=== PATIENT | female | born 2000 | race Caucasian/White ===

== ENCOUNTER 2025-02-17 10:05 | Outpatient (CLI) | payer OTHER, SELFPAY ==
--- NOTE | ~2025-02-17 | US_ITS ---
EXAMINATION: US OB /maternal detail DATE: 02/17/2025 16:36 CDT INDICATION: Anatomy scan TECHNIQUE: Real-time transabdominal obstetric ultrasound. FINDINGS: 4 para 0. Last menstrual period is given as 09/12/2024. There is a single intrauterine gestation in variable presentation. The placenta is posterior. The tip of the placenta measures approximately 5 cm from the cervix. The cervix measures 3.5 cm in length. cardiac activity and movement is noted with a heart rate of 143 beats per minute. Anatomic parameters are as follows The bladder is visualized and is unremarkable. A three-vessel cord is present. Cord insertion is on the midline on the submitted images. Bilateral kidneys are present and symmetric without hydronephrosis. The margins of the diaphragm is poorly visualized for which follow-up examination is needed. The cervical, thoracic and lumbar spines are covered in their entirety. choroid plexi are poorly visualized, for which follow-up examination is needed. Lateral ventricles are poorly visualized for which follow-up examination is needed. The falx is visualized. The cerebellum is visualized measuring 18.9 mm, and is sonographically unremarkable. The cisterna magna measures 2.8 mm in anterior to posterior dimension (normal measurement is 2 to 10 mm). The nuchal fold measures 4.9 mm (greater than 6 mm is considered abnormal). Cine of the four-chamber heart is visualized and is unremarkable. Both the right and left ventricular outflow tracts are identified and are unremarkable. Limited views of the arms, hands, legs and feet were performed and appear grossly unremarkable. The evaluation of the upper lip and nose confirms their continuity. The following biometric data were obtained: Biparietal diameter (BPD): 4.4 cm; head circumference (HC): 16.1 cm; abdominal circumference (AC): 13.5 cm; femur length (FL): 3 cm. These measurements are concordant. Estimated weight is 272.9 g +/- 40.9 g, which correlates with the third percentile when 07/13/20 25 is used as estimated date of delivery. As single measurements, these parameters are each equal to the following estimated gestational ages: BPD: 19 weeks 2 days. HC: 19 weeks 0 days. AC: 18 weeks 6 days. FL: 19 weeks 2 days. estimated gestational age based solely on measurements from this exam is 19 weeks 1 day +/- 1 w [place] 2 days. IMPRESSION: Single intrauterine gestation with an approximate gestational age of 19 weeks and 1 day. Estimated due date by ultrasound is 07/13/2025. Estimated weight is only within the 3rd percentile, as detailed above. choroid plexi are poorly visualized, for which follow-up examination is needed. Lateral ventricles are poorly visualized for which follow-up examination is needed. Reviewed, dictated and finalized at location A. IMPRESSION: Single intrauterine gestation with an approximate gestational age of 19 weeks a nd 1 day. Estimated due date by ultrasound is 07/13/2025. Estimated weight is only within the 3rd percentile, as detailed above. choroid plexi are poorly visualized, for which follow-up examination is n eeded. Lateral ventricles are poorly visualized for which follow-up examination is nee ded.
--- OUTSIDE RECORDS SUMMARY | 2025-02-17 10:26 | XMS_ITS | Clinical Summary ---
Author Organization [facility] Address [address] [place] [address] Care Team Providers Care Chief Load Dispatcher Name Role Phone No, Physician Primary Care Provider [phone] Allergies No known active allergies Medications ondansetron ODT (ZOFRAN-ODT) 4 mg disintegrating tablet Take 1 tablet (4 mg total) by mouth every 8 (eight) hours as needed for nausea or vomiting 20 tablet 5 Active prochlorperazine (COMPAZINE) 10 mg tablet Take 1 tablet (10 mg total) by mouth 2 (two) times a day as needed for nausea or vomiting 10 tablet 5 Active doxylamine-pyridoxi ne, vit B6, (DICLEGIS) 10-10 mg tablet Take 1 tablet by mouth nightly as needed for nausea 30 tablet 5 Active Active Problems Problem Noted Date Diagnosed Date Strep pharyngitis 11/30/2022 Comments Yes Encounters Date Type Department Care Team Description 12/04/2024 3:44 PM CLERICAL SPECIALIST - 12/04/2024 6:44 PM [facility] Emergency [facility] Emergency Department [address] [place] [address] Renny Tejeda MD Hyperemesis gravidarum (Primary Dx); Hypokalemia Discharge Disposition: Discharge to home or self care 11/27/2024 1:44 AM CLERICAL SPECIALIST - 11/27/2024 6:35 AM CLERICAL SPECIALIST Emergency [facility] Emergency Department [address] [place] [address] Bahman Kimbrough MD Nausea and vomiting, unspecified vomiting type (Primary Dx); UTI (urinary tract infection), bacterial Discharge Disposition: Discharge to home or self care 11/25/2024 10:57 PM CLERICAL SPECIALIST - 11/26/2024 1:34 AM CLERICAL SPECIALIST Emergency [facility] Emergency Department [address] [place] [address] Bahman Kimbrough MD UTI (urinary tract infection), bacterial (Primary Dx); Less than 8 weeks gestation of ; Asymptomatic bacteriuria during Discharge Disposition: Discharge to home or self care from Last 3 Months Social History Tobacco Use Types Packs/Day Years Used Date Smoking Tobacco: Never Smokeless Tobacco: Never Tobacco Cessation:Counseling Given: Not Answered Personal Safety Answer Date Recorded Have you ever been in or are you currently in a harmful physical or emotional relationship or is someone making you feel afraid or unsafe? Denies 12/04/2024 Comments Yes Sex and Gender Information Value Date Recorded Sex Assigned at Not on file Legal Sex Female 1:03 PM CLERICAL SPECIALIST Gender Identity Not on file Sexual Orientation Not on file Obstetrics History Para Term AB IAB SAB Ectopic Multiple Livin g Live Births 1 Date Outcome GA Total Labor Labor/2nd/3rd Weight Sex Type Anes PTL Dagmar A1 A5 Name Clin Current Last Filed Vital Signs Vital Sign Reading Time Taken Comments Blood Pressure 114/65 12/04/2024 6:44 PM CLERICAL SPECIALIST Pulse 70 12/04/2024 6:44 PM CLERICAL SPECIALIST Temperature 36.8 C (98.3 F) 12/04/2024 12:16 PM CLERICAL SPECIALIST Respiratory Rate 17 12/04/2024 6:44 PM CLERICAL SPECIALIST Oxygen Saturation 98% 12/04/2024 6:44 PM CLERICAL SPECIALIST Inhaled Oxygen Concentration - - Weight 86.2 kg (190 lb) 12/04/2024 12:16 PM CLERICAL SPECIALIST Height 157.5 cm (5' 2 ) 12/04/2024 12:16 PM CLERICAL SPECIALIST Body Mass Index 34.75 12/04/2024 12:16 PM CLERICAL SPECIALIST Plan of Treatment Health Maintenance Due Date Last Done Comments Cervical Cancer Screening 2002 Depression Screening 2002 Hepatitis C Screening 2002 Meningococcal B Vaccine (2 of 2 - Bexsero SCDM 2-dose series) 02/16/2019 08/18/2018 Regular Well Visit/Exam 18-64 2020 Covid-19 Vaccine ( season) 2024 11/05/2021, 12/14/2020, 11/15/2020 DTaP/Tdap/Td Vaccine (7 - Td or Tdap) 06/04/2025 06/04/2015, 07/21/2006, 09/13/2003, Additional history exists Influenza Vaccine (Season Ended) 2025 08/08/2023, 11/01/2020, 07/30/2019, Additional history exists Pneumococcal vaccine <65 Aged Out 2002 No longer eligible based on patient's age to complete this topic Hepatitis B Screening Completed 06/26/2003 , 04/25/2003, 01/27/2003, Additional history exists Varicella Vaccines Completed 06/04/2015, 0 04/06/2007, 11/23/2003 HPV Vaccines Completed 03/07/2016, 07/27, 06/04/2015, Additional history exists Procedures Procedure Name Priority Date/Time Associated Diagnosis Comments EGFR STAT 12/04/2024 4:41 PM CLERICAL SPECIALIST DIFFERENTIAL AUTO STAT 12/04/2024 4:4 1 PM CLERICAL SPECIALIST CBC WITH AUTO DIFFERENTIAL STAT 12/04/2024 4:41 PM CLERICAL SPECIALIST COMPREHENSIVE METABOLIC PANEL STAT 12/04/2024 4:41 PM CLERICAL SPECIALIST URINE CULTURE STAT 12/04/2024 4:41 PM CLERICAL SPECIALIST URINALYSIS, MICROSCOPIC ONLY STAT 12/04/2024 12:16 PM CLERICAL SPECIALIST URINALYSIS AND REFLEX TO MICROSCOPIC AND CULTURE STAT 12/04/2024 12:16 PM CLERICAL SPECIALIST POCT HCG, URINE Routine 12/04/2024 12:15 PM CLERICAL SPECIALIST XR CHEST 1 VIEW ED 11/27/2024 5:29 AM CLERICAL SPECIALIST HCG, BLOOD, QUANTITATIVE STAT 11/26/2024 11:29 PM CLERICAL SPECIALIST EGFR STAT 11/26/2024 11:29 PM CLERICAL SPECIALIST DIFFERENTIAL AUTO STAT 11/26/2024 11: 29 PM CLERICAL SPECIALIST COMPREHENSIVE METABOLIC PANEL STAT 11/26/2024 11:29 PM CLERICAL SPECIALIST CBC WITH AUTO DIFFERENTIAL STAT 11/26/2024 11:29 PM CLERICAL SPECIALIST URINALYSIS, MICROSCOPIC ONLY STAT 11/26/2024 12:27 AM CLERICAL SPECIALIST URINALYSIS AND REFLEX TO MICROSCOPIC AND CULTURE STAT 11/26/2024 12:27 AM CLERICAL SPECIALIST EGFR STAT 11/25/2024 9:31 PM CLERICAL SPECIALIST DIFFERENTIAL AUTO STAT 11/25/2024 9:3 1 PM CLERICAL SPECIALIST HCG, BLOOD, QUANTITATIVE STAT 11/25/2024 9:31 PM CLERICAL SPECIALIST COMPREHENSIVE METABOLIC PANEL STAT 11/25/2024 9:31 PM CLERICAL SPECIALIST CBC WITH AUTO DIFFERENTIAL STAT 11/25/2024 9:31 PM CLERICAL SPECIALIST INFLUENZA A/B, RSV, AND COVID-19 PCR Routine 11/25/2024 9:31 PM CLERICAL SPECIALIST from Last 3 Months Results * eGFR (12/04/2024 4:41 PM CLERICAL SPECIALIST) eGFR >90 >=60 mL/min/1. 73 m2 Comment: Interpretive Data Reference Interval Normal >/= 90 mL/min/1.73m2 Mildly decreased* 60 - 89 mL/min/1.73m2 Mildly to moderately decreased 45 - 59 mL/min/1.73m2 Moderately to severely decreased 30 - 44 mL/min/1.73m2 Severely decreased 15 - 29 mL/min/1.73m2 Kidney Failure < 15 mL/min/1.73m2 *Relative to young adult level Estimated glomerular filtration rate is determined by the 2020 CKD-EPI equation recommended by the National Kidney Foundation (A Unifying Approach to GFR Estimation: Recommendations of the NKF-ASK Task Force on Reassessing the Inclusion of Race in Diagnosing Kidney Disease, JASN 202). The CKD-EPI equation should not be used for patients with unstable renal function and has not been validated in children and those over 70. Current interpretive data was last reviewed 2021. Blood 12/04/2024 4:41 PM CLERICAL SPECIALIST 12/04/2024 4:49 PM CLERICAL SPECIALIST us Melquiades Coffey MD LAB BLOOD ORDERABLES Final Result [address] [place] [address] * Differential, auto (12/04/2024 4:41 PM CLERICAL SPECIALIST) Pathologist [facility] Neutrophil abs 6.5 1.5 - 6.5 K/cumm Imm gran abs 0.0 0.0 - 0.1 K/cumm [facility] Lymphocyte abs 1.3 0.8 - 3.3 K/cumm [facility] Monocyte abs 0.7 0.2 - 0.8 K/cumm [facility] Eosinophil abs 0.0 0.0 - 0.5 K/cumm [facility] Basophil abs 0.0 0.0 - 0.1 K/cumm [facility] Neutrophil pct 76.0 % [facility] Comment: Interpretive Data Percent cell count reference ranges are not reported, since discordance with absolute values may lead to misinterpretation of CBC data. Current Interpretive Data was last revised on 2018. Imm gran pct 0.4 % [facility] Comment: Interpretive Data Percent cell count reference ranges are not reported, since discordance with absolute values may lead to misinterpretation of CBC data. Current Interpretive Data was last revised on 2018. Lymphocyte pct 14.7 % [facility] Comment: Interpretive Data Percent cell count reference ranges are not reported, since discordance with absolute values may lead to misinterpretation of CBC data. Current Interpretive Data was last revised on 2018. Monocyte pct 8.6 % [facility] Comment: Interpretive Data Percent cell count reference ranges are not reported, since discordance with absolute values may lead to misinterpretation of CBC data. Current Interpretive Data was last revised on 2018. Eosinophil pct 0.1 % [facility] Comment: Interpretive Data Percent cell count reference ranges are not reported, since discordance with absolute values may lead to misinterpretation of CBC data. Current Interpretive Data was last revised on 2018. Basophil pct 0.2 % [facility] Comment: Interpretive Data Percent cell count reference ranges are not reported, since discordance with absolute values may lead to misinterpretation of CBC data. Current Interpretive Data was last revised on 2018. Blood 12/04/2024 4:41 PM CLERICAL SPECIALIST 12/04/2024 4:49 PM CLERICAL SPECIALIST us Buffy BURKETT LAB BLOOD ORDERABLES Manjula l Result [facility] [address] [facility] Department [place] [address] * CBC with auto differential (12/04/2024 4:41 PM CLERICAL SPECIALIST) WBC 8.5 3.8 - 9.9 K/cumm Hgb 12.5 11.9 - 15.5 g/dL [facility] Hct 36.3 35.6 - 45.5 % [facility] Plt 286 150 - 400 K/cumm [facility] MPV 10.5 9.1 - 12.3 fL [facility] RBC 4.23 3.90 - 5.20 M/cumm [facility] MCV 85.8 81.3 - 96.4 fL [facility] MCH 29.6 27.1 - 33.3 pg [facility] MCHC 34.4 32.3 - 35.7 g/dL [facility] RDW CV 12.2 11.1 - 14.9 % [facility] RDW SD 38.4 35.7 - 48.1 fL [facility] NRBC abs 0.00 0.00 - 0.01 K/cumm [facility] Blood 12/04/2024 4:41 PM CLERICAL SPECIALIST 12/04/2024 4:49 PM CLERICAL SPECIALIST Buffy BURKETT LAB BLOOD ORDERABLES Manjula l Result Performing Organization Address [facility] Co de Phone Number [address] [place] [address] * (ABNORMAL) Urine culture Urine, bladder (12/04/2024 4:41 PM CLERICAL SPECIALIST) Report Final Report: Growth indicates contamination with gram-positive john. (.) Comment:Testing performed by : [facility], [facility], [place]., [address] Organism GROWTH INDICATES CONTAMINATION WITH GRAM-POS JOHN [facility] Urine, bladder 12/04/2024 4: 41 PM CLERICAL SPECIALIST 12/04/2024 6:00 PM CLERICAL SPECIALIST Narrative [facility] - 12/05/2024 12:13 PM CLERICAL SPECIALIST Indications for Culture:-> patient us Buffy BURKETT LAB MICROBIOLOGY - GENERA L ORDERABLES Final Result Performing Organization Address [facility] Co de Phone Number [address] [place] [address] * (ABNORMAL) Comprehensive metabolic panel (12/04/2024 4:41 PM CLERICAL SPECIALIST) Sodium 134(L) 135 - 145 mmol/L Potassium, pl 3.2(L) 3.3 - 4.9 mmol/L [facility] Chloride 100 97 - 110 mmol/L [facility] CO2 22 22 - 32 mmol/L [facility] Anion gap 12 2 - 15 mmol/L [facility] BUN 8 6 - 25 mg/dL [facility] Creatinine 0.57(L) 0.60 - 1.10 mg/dL [facility] Glucose 95 70 - 199 mg/dL [facility] Comment: Interpretive Data Fasting glucose >/= 126 mg/dl is diagnostic for diabetes. Fasting is defined as no caloric intake for at least 8 hours. Fasting glucose between 100 mg/dl to 125 mg/dl is diagnostic of prediabetes. In a patient with classic symptoms of hyperglycemia or hyperglycemic crisis, a random glucose >/= 200 mg/dl is diagnostic for diabetes. In the absence of unequivocal hyperglycemia, results should be confirmed by repeat testing. The classification and Diagnosis of Diabetes Diabetes Care 2021; 46: S19-S40. Current interpretive data was last revised 2022. Calcium 9.2 8.5 - 10.3 mg/dL [facility] Bilirubin, total 0.4 0.1 - 1.2 mg/dL [facility] Protein, pl 6.6 6.5 - 8.5 g/dL [facility] Albumin 3.9 3.5 - 5.0 g/dL [facility] Alk phos 71 40 - 130 Units/L [facility] ALT 46(H) 7 - 45 Units/L [facility] AST 30 10 - 45 Units/L [facility] Blood 12/04/2024 4:41 PM CLERICAL SPECIALIST 12/04/2024 4:49 PM CLERICAL SPECIALIST Melquiades Coffey MD LAB BLOOD ORDERABLES Final Result [address] Department [place] [address] * (ABNORMAL) Urinalysis reflex to microscopic and culture Urine (12/04/2024 12:16 PM CLERICAL SPECIALIST) Color, ur Yellow Yellow Clarity, ur Turbid(A) Clear [facility] Specific gravity, ur >1.030(H) 1.003 - 1.030 [facility] pH, urine 6.0 [facility] Comment: Interpretive Data U rine pH is affected by diet, medications, systemic acid-base disturbances, and renal tubular function. pH may affect urinary stone formation. For example, urine pH below 6.0 may help reduce the tendency for calcium phosphate stones and pH greater than 6.0 may reduce the tendency for uric acid stone formation. Source: [facility] Current Interpretive Data was last revised on 2017 Protein, ur ql 1+(A) Negative [facility] Glucose, ur ql Negative Negative [facility] Ketones, ur 4+(A) Negative [facility] Bilirubin, ur Negative Negative [facility] Blood, ur Negative Negative [facility] Urobilinogen, ur 4.0(A) <2.0 mg/dL [facility] Nitrite, ur Negative Negative [facility] Leukocyte esterase, ur Negative Negative [facility] UA reflex comment Reflex to microscopic UA will be performed. [facility] Urine 12/04/2024 12:1 6 PM CLERICAL SPECIALIST 12/04/2024 12:19 PM CLERICAL SPECIALIST Renny Tejeda MD LAB MICROBIOLOGY - [facility] ORDERABLES Final Result Performing Organization Address City/[facility]/ZIP Co de Phone Number [address] Department [place] [address] * (ABNORMAL) Urinalysis, microscopic only (12/04/2024 12:16 PM CLERICAL SPECIALIST) WBC, ur 6-10(A) 0 - 5 /HPF RBC, ur 3-5(A) 0 - 2 /HPF [facility] Epithelial cells, squamous, ur 1-5 0 - 5 /HPF [facility] Bacteria, ur Trace(A) [facility] Mucous, ur Present(A) [facility] Culture Reflex Comment Reflex conditions for urine culture (WBC >10) not met. [facility] Urine 12/04/2024 12:1 6 PM CLERICAL SPECIALIST 12/04/2024 12:19 PM CLERICAL SPECIALIST Renny Tejeda MD LAB URINE ORDERABLES Final Result Performing Organization Address City/[facility]/ZIP Co de Phone Number [address] Department [place] [address] * (ABNORMAL) POCT hCG, urine (12/04/2024 12:15 PM CLERICAL SPECIALIST) HCG, ur, POC Positive(A) Negative Lot Number [id number] QC Backgroud Clear Acceptable QC Control Line Acceptable Urine 12/04/2024 12:1 5 PM CLERICAL SPECIALIST Renny Tejeda MD POINT OF CARE TEST OR DERABLES Final Result * XR Chest 1 Vw Portable (11/27/2024 5:29 AM CLERICAL SPECIALIST) Anatomical Region Laterality Modality Body, Chest N/A Computed Radiogr aphy 11/27/2024 6:16 AM CLERICAL SPECIALIST Narrative 11/27/2024 6:18 AM CLERICAL SPECIALIST EXAM DESCRIPTION: XR CHEST 1 VIEW REASON FOR STUDY: chest pain r/o air in mediastinum C/o n/v since 2100 hrs day Night. Pt is 6 Weeks and was diagnosed with a UTI Yesterday. Hx of Vaping, but not currently Pt signed preg form and shielded for Image. TECHNIQUE: Single radiographic view of the chest. COMPARISON: None FINDINGS: Suboptimal examination due to patient positioning, rotation, and technique. Findings made within these confines. LINES/TUBES: None. LUNGS: No focal consolidation. No pneumothorax. No pleural effusion. HEART/MEDIASTINUM: Cardiomediastinal contours are within normal limits. BONES/SOFT TISSUES: No acute osseous abnormality. IMPRESSION: No radiographic evidence of an acute cardiopulmonary abnormality. No evidence of pneumomediastinum. THIS IS AN ELECTRONICALLY VERIFIED FINAL REPORT 11/27/2024 6:18 AM - Electronically signed by Kraig Marinelli M.D. NS: NS Report ID: [id number] Reading Location: [id number] Procedure Note Kraig Marinelli MD - 11/27/2024 EXAM DESCRIPTION: XR CHEST 1 VIEW REASON FOR STUDY: chest pain r/o air in mediastinum C/o n/v since 2100 hrs Thursday Night. Pt is 6 Weeks and was diagnosed with a UTI Yesterday. Hx of Vaping, but not currently Pt signed preg form and shielded for Image. TECHNIQUE: Single radiographic view of the chest. COMPARISON: None FINDINGS: Suboptimal examination due to patient positioning, rotation, andtechnique. Findings made within these confines. LINES/TUBES: None. LUNGS: No focal consolidation. No pneumothorax. No pleural effusion. HEART/MEDIASTINUM: Cardiomediastinal contours are within normal limits. BONES/SOFT TISSUES: No acute osseous abnormality. IMPRESSION: No radiographic evidence of an acute cardiopulmonary abnormality. No evidence of pneumomediastinum. THIS IS AN ELECTRONICALLY VERIFIED FINAL REPORT 11/27/2024 6:18 AM - Electronically signed by Kraig Marinelli M.D. NS: NS Report ID: [id number] Reading Location: [place] [address] Bahman Kimbrough MD IMG XR PROCEDURES Final Resul t * eGFR (11/26/2024 11:29 PM CLERICAL SPECIALIST) eGFR >90 >=60 mL/min/1. 73 m2 Comment: Interpretive Data Reference Interval Normal >/= 90 mL/min/1.73m2 Mildly decreased* 60 - 89 mL/min/1.73m2 Mildly to moderately decreased 45 - 59 mL/min/1.73m2 Moderately to severely decreased 30 - 44 mL/min/1.73m2 Severely decreased 15 - 29 mL/min/1.73m2 Kidney Failure < 15 mL/min/1.73m2 *Relative to young adult level Estimated glomerular filtration rate is determined by the 2020 CKD-EPI equation recommended by the National Kidney Foundation (A Unifying Approach to GFR Estimation: Recommendations of the NKF-ASK Task Force on Reassessing the Inclusion of Race in Diagnosing Kidney Disease, JASN 2020). The CKD-EPI equation should not be used for patients with unstable renal function and has not been validated in children and those over 70. Current interpretive data was last reviewed 2021. Blood 11/26/2024 11:2 9 PM CLERICAL SPECIALIST 11/26/2024 11:36 PM CLERICAL SPECIALIST us Bahman iKmbrough MD LAB BLOOD ORDERABLES Final Re sult [facility] ([place]) 1 [facility] Department [place] [address] * (ABNORMAL) Differential, auto (11/26/2024 11:29 PM CLERICAL SPECIALIST) Neutrophil abs 18.0(H) 1.5 - 6.5 K/cumm Imm gran abs 0.1 0.0 - 0.1 K/cumm [facility] ([place]) Lymphocyte abs 1.4 0.8 - 3.3 K/cumm [facility] ([place]) Monocyte abs 0.7 0.2 - 0.8 K/cumm [facility] ([place]) Eosinophil abs 0.2 0.0 - 0.5 K/cumm [facility] ([place]) Basophil abs 0.1 0.0 - 0.1 K/cumm [facility] ([place]) Neutrophil pct 88.6 % [facility] ([place]) Comment: Interpretive Data Percent cell count reference ranges are not reported, since discordance with absolute values may lead to misinterpretation of CBC data. Current Interpretive Data was last revised on 2018. Imm gran pct 0.3 % [facility] ([place]) Comment: Interpretive Data Percent cell count reference ranges are not reported, since discordance with absolute values may lead to misinterpretation of CBC data. Current Interpretive Data was last revised on 2018. Lymphocyte pct 6.8 % [facility] ([place]) Comment: Interpretive Data Percent cell count reference ranges are not reported, since discordance with absolute values may lead to misinterpretation of CBC data. Current Interpretive Data was last revised on 2018. Monocyte pct 3.3 % [facility] ([place]) Comment: Interpretive Data Percent cell count reference ranges are not reported, since discordance with absolute values may lead to misinterpretation of CBC data. Current Interpretive Data was last revised on 2018. Eosinophil pct 0.7 % [facility] ([place] Comment: Interpretive Data Percent cell count reference ranges are not reported, since discordance with absolute values may lead to misinterpretation of CBC data. Current Interpretive Data was last revised on 2018. Basophil pct 0.3 % [facility] ([place]) Comment: Interpretive Data Percent cell count reference ranges are not reported, since discordance with absolute values may lead to misinterpretation of CBC data. Current Interpretive Data was last revised on 2018. Blood 11/26/2024 11:2 9 PM CLERICAL SPECIALIST 11/26/2024 11:36 PM CLERICAL SPECIALIST us Bahman Kimbrough MD LAB BLOOD ORDERABLES Final Re sult [facility] [address] [facility] Department [place] [address] * (ABNORMAL) CBC with auto differential (11/26/2024 11:29 PM CLERICAL SPECIALIST) WBC 20.3(H) 3.8 - 9.9 K/cumm Hgb 14.4 11.9 - 15.5 g/dL [facility] ([place] Hct 41.8 35.6 - 45.5 % [facility] ([place] Plt 419(H) 150 - 400 K/cumm [facility] ([place]) MPV 10.5 9.1 - 12.3 fL [facility] ([place]) RBC 4.86 3.90 - 5.20 M/cumm [facility] ([place]) MCV 86.0 81.3 - 96.4 fL [facility] ([place]) MCH 29.6 27.1 - 33.3 pg [facility] ([place]) MCHC 34.4 32.3 - 35.7 g/dL [facility] ([place]) RDW CV 12.3 11.1 - 14.9 % [facility] ([place]) RDW SD 38.5 35.7 - 48.1 fL [facility] ([place]) NRBC abs 0.00 0.00 - 0.01 K/cumm [facility] ([place]) Blood Venous blood specimen / Unknown 11/26/2024 11:29 PM CLERICAL SPECIALIST 11/26/2024 11:36 PM CLERICAL SPECIALIST us Bahman Kimbrough MD LAB BLOOD ORDERABLES Final Re sult Performing Organization Address [facility] Co de Phone Number [facility] MYERSN) [address] [facility] [place] [address] * (ABNORMAL) hCG, blood, quantitative (11/26/2024 11:29 PM CLERICAL SPECIALIST) Pathologist [facility] hCG, quant 25,805.0( H) 0.0 - 5.0 IUnits/L Comment: Interpretive Data Male: < 5 IU/L Non- premenopausal Female: <5 IU/L The [employer] hCG Beta Quant assay procedure was used. Results from different manufacturers or methods may not be comparable. Serial testing should be performed using the same method. Interpretive Data was last revised on 2023 Blood 11/26/2024 11:2 9 PM CLERICAL SPECIALIST 11/27/2024 6:31 AM CLERICAL SPECIALIST us Bahman Kimbrough MD LAB BLOOD ORDERABLES Final Re sult Performing Organization Address [facility] Co de Phone Number [facility]) [address] [place] [address] * (ABNORMAL) Comprehensive metabolic panel (11/26/2024 11:29 PM CLERICAL SPECIALIST) Pathologist [facility] Sodium 138 135 - 145 mmol/L Potassium, pl 3.6 3.3 - 4.9 mmol/L [facility] Chloride 104 97 - 110 mmol/L [facility] ([place]) CO2 19(L) 22 - 32 mmol/L [facility] ([place]) Anion gap 15 2 - 15 mmol/L [facility] ([place]) BUN 9 6 - 25 mg/dL [facility] ([place]) Creatinine 0.62 0.60 - 1.10 mg/dL [facility] ([place]) Glucose 129 70 - 199 mg/dL [facility] ([place]) Comment: Interpretive Data Fasting glucose >/= 126 mg/dl is diagnostic for diabetes. Fasting is defined as no caloric intake for at least 8 hours. Fasting glucose between 100 mg/dl to 125 mg/dl is diagnostic of prediabetes. In a patient with classic symptoms of hyperglycemia or hyperglycemic crisis, a random glucose >/= 200 mg/dl is diagnostic for diabetes. In the absence of unequivocal hyperglycemia, results should be confirmed by repeat testing. The classification and Diagnosis of Diabetes Diabetes Care 2021; 46: S19-S40. Current interpretive data was last revised 2022. Calcium 9.5 8.5 - 10.3 mg/dL [facility] ([place]) Bilirubin, total 0.3 0.1 - 1.2 mg/dL [facility] ([place]) Protein, pl 7.0 6.5 - 8.5 g/dL [facility] ([place]) Albumin 4.3 3.5 - 5.0 g/dL [facility] ([place]) Alk phos 68 40 - 130 Units/L [facility] ([place]) ALT 8 7 - 45 Units/L [facility] ([place]) AST 16 10 - 45 Units/L [facility] ([place]) Blood Venous blood specimen / Unknown 11/26/2024 11:29 PM CLERICAL SPECIALIST 11/26/2024 11:36 PM CLERICAL SPECIALIST Bahman Kimbrough MD LAB BLOOD ORDERABLES Final Re sult [facility] ([place]) 1 [facility] Department [place] [address] * (ABNORMAL) Urinalysis reflex to microscopic and culture Urine, bladder (11/26/2024 12:27 AM CLERICAL SPECIALIST) Color, ur Yellow Yellow Clarity, ur Clear Clear [facility] ([place]) Specific gravity, ur 1.036(H) 1.003 - 1.030 [facility] ([place]) pH, urine 6.5 [facility] ([place]) Comment: Interpretive Data U rine pH is affected by diet, medications, systemic acid-base disturbances, and renal tubular function. pH may affect urinary stone formation. For example, urine pH below 6.0 may help reduce the tendency for calcium phosphate stones and pH greater than 6.0 may reduce the tendency for uric acid stone formation. Source: [facility] Current Interpretive Data was last revised on 2017 Protein, ur ql 1+(A) Negative [facility] ([place]) Glucose, ur ql Negative Negative [facility] ([place]) Ketones, ur 3+(A) Negative [facility] ([place]) Bilirubin, ur Negative Negative [facility] ([place]) Blood, ur Negative Negative [facility] ([place]) Urobilinogen, ur 2.0(A) <2.0 mg/dL [facility] ([place]) Nitrite, ur Negative Negative [facility] ([place]) Leukocyte esterase, ur 1+(A) Negative [facility] ([place]) UA reflex comment Reflex to microscopic UA will be performed. [facility] ([place]) Urine, bladder 11/26/2024 12 :27 AM CLERICAL SPECIALIST 11/26/2024 12:29 AM CLERICAL SPECIALIST us Bahman Kimbrough MD LAB MICROBIOLOGY - GENERAL OR DERABLES Final Result Performing Organization Address [facility] de Phone Number [facility]KAELA VILLAFUERTE ([place]) 1 [facility] Department [place] [address] * (ABNORMAL) Urinalysis, microscopic only (11/26/2024 12:27 AM CLERICAL SPECIALIST) WBC, ur 0-5 0 - 5 /HPF RBC, ur 0-2 0 - 2 /HPF [facility] ([place]) Epithelial cells, squamous, ur 6-10(A) 0 - 5 /HPF [facility] ([place]) Bacteria, ur Trace(A) [facility] ([place]) Mucous, ur Present(A) [facility] ([place]) Culture Reflex Comment Reflex conditions for urine culture (WBC >10) not met. [facility] ([place]) Urine, bladder 11/26/2024 12 :27 AM CLERICAL SPECIALIST 11/26/2024 12:29 AM CLERICAL SPECIALIST us Bahman Kimbrough MD LAB URINE ORDERABLES Final Re sult MIKAELA BOWLING) 1 [facility] Department [place] [address] * Influenza A/B, RSV, and COVID-19 PCR Nasopharyngeal (11/25/2024 9:31 PM CLERICAL SPECIALIST) [facility] COVID-19 RNA Negative Negative Influenza A RNA Negative Negative [facility] ([place]) Influenza B RNA Negative Negative [facility] ([place]) RSV RNA Negative Negative [facility] ([place]) Comment: Interpretive data: Testing performed by [facility]. This test is performed using the [employer] Xpert Xpress CoV-2/Flu/RSV plus assay. This is a multiplex, real- time reverse transcriptase PCR assay intended for the qualitative detection of nucleic acid from SARS-CoV-2, influenza A, influenza B, and respiratory syncytial virus. This assay has been cleared by the [place] Food and Drug administration. The performance characteristics have been verified by the [facility]. Results must be considered in the clinical context, and a negative result does not rule out infection. Interpretive Data last revised 2023 Nasopharyngeal 11/25/2024 9: 31 PM CLERICAL SPECIALIST 11/25/2024 10:46 PM CLERICAL SPECIALIST Narrative MIKAELA BOWLING) - 11/25/2024 11:30 PM CLERICAL SPECIALIST Is the Patient experiencing symptoms consistent with COVID?->Yes Bahman Kimbrough MD LAB MICROBIOLOGY - GENERAL OR DERABLES Final Result MIKAELA BOWLING) 1 [facility] Department [place] [address] * eGFR (11/25/2024 9:31 PM CLERICAL SPECIALIST) [facility] eGFR >90 >=60 mL/min/1. 73 m2 Comment: Interpretive Data Reference Interval Normal >/= 90 mL/min/1.73m2 Mildly decreased* 60 - 89 mL/min/1.73m2 Mildly to moderately decreased 45 - 59 mL/min/1.73m2 Moderately to severely decreased 30 - 44 mL/min/1.73m2 Severely decreased 15 - 29 mL/min/1.73m2 Kidney Failure < 15 mL/min/1.73m2 *Relative to young adult level Estimated glomerular filtration rate is determined by the 2020 CKD-EPI equation recommended by the National Kidney Foundation (A Unifying Approach to GFR Estimation: Recommendations of the NKF-ASK Task Force on Reassessing the Inclusion of Race in Diagnosing Kidney Disease, JASN 2020). The CKD-EPI equation should not be used for patients with unstable renal function and has not been validated in children and those over 70. Current interpretive data was last reviewed 2021. Blood 11/25/2024 9:31 PM CLERICAL SPECIALIST 11/25/2024 10:45 PM CLERICAL SPECIALIST us Bahman Kimbrough MD LAB BLOOD ORDERABLES Final Re sult [facility] ([place] 1 [facility] Department [place] [address] * (ABNORMAL) Differential, auto (11/25/2024 9:31 PM CLERICAL SPECIALIST) Neutrophil abs 8.5(H) 1.5 - 6.5 K/cumm Imm gran abs 0.0 0.0 - 0.1 K/cumm [facility] ([place]) Lymphocyte abs 2.0 0.8 - 3.3 K/cumm [facility] ([place]) Monocyte abs 0.5 0.2 - 0.8 K/cumm [facility] ([place]) Eosinophil abs 0.2 0.0 - 0.5 K/cumm [facility] ([place]) Basophil abs 0.1 0.0 - 0.1 K/cumm [facility] ([place]) Neutrophil pct 75.1 % [facility] ([place]) Comment: Interpretive Data Percent cell count reference ranges are not reported, since discordance with absolute values may lead to misinterpretation of CBC data. Current Interpretive Data was last revised on 2018. Imm gran pct 0.4 % [facility] ([place]) Comment: Interpretive Data Percent cell count reference ranges are not reported, since discordance with absolute values may lead to misinterpretation of CBC data. Current Interpretive Data was last revised on 2018. Lymphocyte pct 18.1 % [facility] ([place]) Comment: Interpretive Data Percent cell count reference ranges are not reported, since discordance with absolute values may lead to misinterpretation of CBC data. Current Interpretive Data was last revised on 2018. Monocyte pct 4.7 % [facility] ([place]) Comment: Interpretive Data Percent cell count reference ranges are not reported, since discordance with absolute values may lead to misinterpretation of CBC data. Current Interpretive Data was last revised on 2018. Eosinophil pct 1.3 % [facility] ([place]) Comment: Interpretive Data Percent cell count reference ranges are not reported, since discordance with absolute values may lead to misinterpretation of CBC data. Current Interpretive Data was last revised on 2018. Basophil pct 0.4 % [facility] ([place]) Comment: Interpretive Data Percent cell count reference ranges are not reported, since discordance with absolute values may lead to misinterpretation of CBC data. Current Interpretive Data was last revised on 2018. Blood 11/25/2024 9:31 PM CLERICAL SPECIALIST 11/25/2024 10:45 PM CLERICAL SPECIALIST us Bahman Kimbrough MD LAB BLOOD ORDERABLES Final Re sult [facility] ([place]) 1 [facility] Department [place] [address] * (ABNORMAL) CBC with auto differential (11/25/2024 9:31 PM CLERICAL SPECIALIST) WBC 11.3(H) 3.8 - 9.9 K/cumm Hgb 13.2 11.9 - 15.5 g/dL [facility] ([place]) Hct 39.0 35.6 - 45.5 % [facility] ([place]) Plt 364 150 - 400 K/cumm [facility] ([place]) MPV 11.1 9.1 - 12.3 fL [facility] ([place]) RBC 4.45 3.90 - 5.20 M/cumm [facility] ([place]) MCV 87.6 81.3 - 96.4 fL [facility] ([place]) MCH 29.7 27.1 - 33.3 pg [facility] MCHC 33.8 32.3 - 35.7 g/dL [facility] ([place]) RDW CV 12.3 11.1 - 14.9 % [facility] ([place]) RDW SD 39.8 35.7 - 48.1 fL [facility] ([place]) NRBC abs 0.00 0.00 - 0.01 K/cumm [facility] ([place]) Blood 11/25/2024 9:31 PM CLERICAL SPECIALIST 11/25/2024 10:45 PM CLERICAL SPECIALIST us Bahman Kimbrough MD LAB BLOOD ORDERABLES Final Re sult Performing Organization Address City/[facility] Co de Phone Number MIKAELA VILLAFUERTE ([place]) 1 [facility] [address] [place] [address] * (ABNORMAL) hCG, blood, quantitative (11/25/2024 9:31 PM CLERICAL SPECIALIST) hCG, quant 22,135.0( H) 0.0 - 5.0 IUnits/L Comment: Interpretive Data Male: < 5 IU/L Non- premenopausal Female: <5 IU/L The [employer] hCG Beta Quant assay procedure was used. Results from different manufacturers or methods may not be comparable. Serial testing should be performed using the same method. Interpretive Data was last revised on 2023 Blood 11/25/2024 9:31 PM CLERICAL SPECIALIST 11/25/2024 10:45 PM CLERICAL SPECIALIST us Bahman Kimbrough MD LAB BLOOD ORDERABLES Final Re sult Performing Organization Address City/[facility]/ZIP Co de Phone Number [facility] ([place]) 1 [facility] [place] [address] * Comprehensive metabolic panel (11/25/2024 9:31 PM CLERICAL SPECIALIST) Sodium 136 135 - 145 mmol/L Potassium, pl 3.6 3.3 - 4.9 mmol/L [facility] ([place]) Chloride 100 97 - 110 mmol/L [facility] ([place]) CO2 24 22 - 32 mmol/L [facility] ([place]) Anion gap 12 2 - 15 mmol/L [facility] ([place]) BUN 8 6 - 25 mg/dL [facility] ([place]) Creatinine 0.61 0.60 - 1.10 mg/dL [facility] ([place]) Glucose 87 70 - 199 mg/dL [facility] ([place]) Comment: Interpretive Data Fasting glucose >/= 126 mg/dl is diagnostic for diabetes. Fasting is defined as no caloric intake for at least 8 hours. Fasting glucose between 100 mg/dl to 125 mg/dl is diagnostic of prediabetes. In a patient with classic symptoms of hyperglycemia or hyperglycemic crisis, a random glucose >/= 200 mg/dl is diagnostic for diabetes. In the absence of unequivocal hyperglycemia, results should be confirmed by repeat testing. The classification and Diagnosis of Diabetes Diabetes Care 202; 46: S19-S40. Current interpretive data was last revised 2022. Calcium 9.5 8.5 - 10.3 mg/dL [facility] ([place]) Bilirubin, total 0.3 0.1 - 1.2 mg/dL [facility] ([place]) Protein, pl 6.9 6.5 - 8.5 g/dL [facility] ([place]) Albumin 4.3 3.5 - 5.0 g/dL [facility] ([place]) Alk phos 64 40 - 130 Units/L [facility] ([place]) ALT 9 7 - 45 Units/L [facility] ([place]) AST 14 10 - 45 Units/L [facility] ([place]) Blood 11/25/2024 9:31 PM CLERICAL SPECIALIST 11/25/2024 10:45 PM CLERICAL SPECIALIST us Bahman Kimbrough MD LAB BLOOD ORDERABLES Final Re sult [facility] ([place]) 1 [facility] Department [place] [address] from Last 3 Months Insurance [facility] [place] [place] [address] Member Subscriber Plan / Payer (Ef fective 2024-Present) Name:McmahonYu Relation to Subscriber:Self Name:Yoli Mcmahonmorena Lopez Payer ID:[id number] (NAIC) Group ID:Not on file Type:MEDICAID RISK OTHER Address: ATTN: CLAIMS DEPT [address] [facility] [place] [phone] Care Teams Chief Load Dispatcher Relationship Specialty Start Date End Date No, Physician PCP - General 09/12/22
--- OUTSIDE RECORDS SUMMARY | 2025-02-17 10:26 | XMS_ITS | Clinical Summary ---
Author Organization [facility] Address [address] [place] [address] Phone Care Team Providers Care Chief Digital Media Officer Name Role Phone Provider, None Primary Care Provider Unavailabl e Allergies No known active allergies Medications hydrOXYzine (ATARAX) 25 MG Tablet Take 1 Tablet by mouth every 6 hours as needed for Anxiety. 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 Gender Identity Not on file Sexual Orientation Not on file Last Filed Vital Signs Vital Sign Reading Time Taken Comments Blood Pressure 140/74 06/07/2024 9:00 PM CDT Pulse 67 06/07/2024 9:00 PM CDT Temperature 36.6 C (97.8 F) 06/07/2024 5:51 PM CDT Respiratory Rate 16 06/07/2024 9:00 PM CDT Oxygen Saturation 100% 06/07/2024 9:00 PM CDT Inhaled Oxygen Concentration - - Weight 89.8 kg (198 lb) 06/07/2024 5:51 PM CDT Height 157.5 cm (5' 2 ) 06/07/2024 5:51 PM CDT Body Mass Index 36.21 06/07/2024 5:51 PM CDT Plan of Treatment Health Maintenance Due Date Last Done Comments Hepatitis C Virus (HCV) Screening 2002 TdaP Immunization 2002 Human Papillomavirus (HPV) Immunization (1 - 3-dose series) 2017 Meningococcal B Immunization (1 of 2 - Standard) 2018 Hepatitis B Immunization (1 of 3 - 19+ 3-dose series) 2021 Pap Smear 2023 Influenza Immunization (#1) 06/26/202407/26, 07/30/2019 SARS-COV-2 Immunization (2023- season) 2024 Respiratory Syncytial Virus (RSV) Immunization (Adult) (1 - 1-dose 75+ series) 2077 Meningococcal Immunization (ACWY) Aged Out No longer eligible b ased on patient's age to complete this topic Pneumococcal Immunization Combined Aged Out No longer eligible b ased on patient's age to complete this topic Rotavirus Immunization Aged Out No lo nger eligible based on patient's age to complete this topic Insurance MEDICAID [place] Care Teams Chief Digital Media Officer Relationship Specialty Start Date End Date Provider, None [place] PCP - General 11/11/23
--- OUTSIDE RECORDS SUMMARY | 2025-02-17 10:26 | XMS_ITS | Clinical Summary ---
Author Organization [facility] Address [address] [place] [address] Care Team Providers Care Pollution Control Chemist Name Role Phone Steph Pedraza JASON-CENTRIFUGAL SCREEN TENDER Primary Care Provider + Source Comments [facility],non-owned Affiliates and Associated Physician Practices is amultiple site organization consisting of ambulatory clinics and hospital sitesin [place], [place], [place] and [place]. This disclosure is being madepursuant to the Care Everywhere program and may not contain all information available regarding this patient. Last updated 18.[facility] Allergies No known active allergies Medications * This document contains information received from the source organization and may not represent a complete record from that organization. * Be aware that medications may not be up to date on this document. Alwaysverify current medications with the patient. levonorgestrel- ethinyl estradiol (INTROVALE) tabletIndicatio ns:Contraceptiv e Therapy Take 1 tablet by mouth once daily Reasons: Control Treatment Active cloNIDine (CATAPRES) 0.1 MG tabletIndicatio ns:Hypertension Take 1 tablet by mouth once daily Reasons: High Blood Pressure Disorder 30 tablet 1 9 Active loratadine (CLARITIN) 10 MG tabletIndicatio ns:Seasonal Allergic Rhinitis Take 1 tablet by mouth once daily Reasons: Hayfever 30 tablet 1 9 Active lurasidone (LATUDA) 20 MG tabletIndicatio ns:Depressive Phase Bipolar Mood Disorder Take 1 tablet by mouth daily with breakfast Reasons: Depressive Phase of Manic-Depressio n 30 tablet 1 9 Active ondansetron, disintegrating, (ZOFRAN ODT) 4 MG tablet Take 1 (one) tablet by mouth every 6 hours as needed for Nausea/Vomiting Allow tablet to dissolve on the tongue 10 tablet 2 Active Active Problems Problem Noted Date Diagnosed Date Unspecified mood (affective) disorder 07/28/2019 Immunizations Immunization Administration Dates Next Due INFLUENZA VACCINE, QUADR. 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 Gender Identity Not on file Sexual Orientation Not on file Last Filed Vital Signs Vital Sign Reading Time Taken Comments Blood Pressure 119/89 12/15/2021 11:16 PM PIGMENT PUMPER Pulse 121 12/15/2021 8:09 PM PIGMENT PUMPER Temperature 36.6 C (97.9 F) 12/15/2021 8:09 PM PIGMENT PUMPER Respiratory Rate 18 12/15/2021 8:09 PM PIGMENT PUMPER Oxygen Saturation 94% 12/15/2021 11:59 PM PIGMENT PUMPER Inhaled Oxygen Concentration - - Weight 93.3 kg (205 lb 11 oz) 12/15/2021 8:09 PM PIGMENT PUMPER Height 160 cm (5' 3 ) 12/15/2021 8:09 PM PIGMENT PUMPER Body Mass Index 36.44 12/15/2021 8:09 PM PIGMENT PUMPER Plan of Treatment Health Maintenance Due Date Last Done Comments HIV SCREENING 2017 HPV VACCINE (1 - 3-dose series) 2017 CHLAMYDIA/GONORRHEA SCREENING 2018 MENINGOCOCCAL (Group B) VACCINE SHARED DECISION-MAKING (1 of 2 - Standard) 2018 HEPATITIS C SCREENING 04/25/2020 DTAP/TDAP/TD VACCINES (1 - Tdap) 2021 HEPATITIS B VACCINE (1 of 3 - 19+ 3-dose series) 2021 COVID-19 VACCINE ( season) 2024 11/05/2021, 12/14/2020, 11/15/2020 DEPRESSION SCREENING 10/26/2024 INFLUENZA VACCINE (Season Ended) 2025 11/01/2020, 07/30/2019, 06/29/2018, Additional history exists ZOSTER VACCINE (1 of 2) 2052 HIB VACCINE Aged Out No longer eligi ble based on patient's age to complete this topic MENINGOCOCCAL GROUPS A/C/Y/W VACCINE Aged Out No longer eligible based on patient's age to complete this topic PNEUMOCOCCAL VACCINE Aged Out No long er eligible based on patient's age to complete this topic Insurance [place] [address] [place] [id number] [place] - [place] Advance Directives * Full Code (Latest Code Status on File) Date Activated Date Inactivated Comments 07/28/2019 11:33 AM 08/03/2019 1:02 PM Care Teams Pollution Control Chemist Relationship Specialty Start Date End Date Steph Pedraza APRN-PATRICIA [address] [place] [address]. [address]. [address] [address] PCP - General Nurse Practitioner Family 07/27/19
--- OUTSIDE RECORDS SUMMARY | 2025-02-17 10:26 | XMS_ITS | Clinical Summary ---
Author Organization [facility] Address [address] [address] [place] [address] Phone Care Team Providers Care History Tutor Name Role Phone Unavailable Primary Care Provider Unavailabl e Allergies No known active allergies Medications No known medications Active Problems Estimated Date of Delivery Comme nts Yes 06/19/2025 Date entered yessica or to episode creation No known active problems Encounters Date Type Department Care Team Description 01/16/2025 Patient Outreach [facility] [address] [place] [address] Sachi Agosto [place] Coverage; [place] [employer]; Housing Assistance; Medication Assistance 01/12/2025 Patient Outreach [facility] [address] [place] [address] Sachi Agosto [place]; [place] [employer]; Housing Assistance; Medication Assistance 01/10/2025 Patient Outreach [facility] [address] [place] [address] Sachi Agosto Documentation Only (BNQ) 01/05/2025 1:17 PM CDT - 01/05/2025 5:15 PM CDT Emergency [facility] Obstetrics Emergency Department [address] [place] [address] Nausea and vomiting during prior to 22 weeks gestation (Primary Dx) Discharge Disposition: Home or Self Care 01/05/2025 Patient Outreach [facility] [address] [place] [address] Sachi Agosto Referral (PAR); [place]age; [place] [employer] 01/05/2025 Travel from Last 3 Months Family History * Patient is adopted Medical History Relation Name Comments Cancer Mother bio-mom Relation Name Status Comments Father Alive Mother bio-mom Social History Tobacco Use Types Packs/Day Years Used Date Smoking Tobacco: Never Smokeless Tobacco: Never Tobacco Cessation:Counseling Given: Not Answered Alcohol Use Standard Drinks/Week Comments Not Currently 0 (1 standard drink = 0.6 oz pur e alcohol) Feeling Safe Answer Date Recorded Do you worry about feeling s afe and happy with the people in your life? No 01/10/2025 Food Insecurity Answer Date Recorded Do you find you are eating l ess than you should because you can t pay for food? No 01/10/2025 Transportation Needs Answer Date Record ed Have you gone without health care because you didn t have a way to get there? Or worry about transportation for future doctor visits, filler picker medication, etc.? No 2024 Housing Stability Answer Date Recorded Do you worry you won t have a steady place to sleep or struggle to pay rent or mortgage? Yes 01/10/2025 Utility Needs Answer Date Recorded Do you have difficulty payin g for utility costs (electric, water or gas bills)? No 01/10/2025 Medication Needs Answer Date Recorded Have you skipped taking medi cation due to cost or worry you can t afford new medications? Yes 01/10/2025 Feeling Safe Answer Date Recorded Are you in a relationship wi th someone who hurts you emotionally and/or physically? No 01/05/2025 Estimated Date of Delivery Comme nts Yes 06/19/2025 Date entered yessica or to episode creation Sex and Gender Information Value Date Recorded Sex Assigned at Not on file Legal Sex Female 9:47 AM CDT Gender Identity Not on file Sexual Orientation Not on file Last Filed Vital Signs Vital Sign Reading Time Taken Comments Blood Pressure 124/71 01/05/2025 5:11 PM CDT Pulse 112 01/05/2025 12:25 PM CDT Temperature 36.8 C (98.3 F) 01/05/2025 5:11 PM CDT Respiratory Rate 18 01/05/2025 5:11 PM CDT Oxygen Saturation 100% 01/05/2025 5:11 PM CDT Inhaled Oxygen Concentration - - Weight - - Height - - Body Mass Index - - Plan of Treatment Health Maintenance Due Date Last Done Comments CHLAMYDIA SCREENING (ANNUAL) 11-24 YEARS 2013 HPV VACCINES (1 - 3-dose series) 2017 DTAP/TDAP/TD VACCINES (1 - Tdap) 2021 HEPATITIS B VACCINES (1 of 3 - 19+ 3-dose series) 03/2021 CERVICAL CANCER SCREENING 2023 HPV/Cotest (21-29) 2023 PAP SMEAR 2023 INFLUENZA VACCINE (#1) 2024 07/30/2019 RSV VACCINE (60+ or ) (No Doses Required) Comp leted Procedures Procedure Name Priority Date/Time Associated Diagnosis Comments POC URINALYSIS DIPSTICK AUTOMATED Stat 01/05/2025 3:12 PM CDT COMPREHENSIVE METABOLIC PANEL Stat 01/05/2025 3:00 PM CDT CBC WITH DIFFERENTIAL Stat 01/05/2025 3:00 PM CDT from Last 3 Months Results * (ABNORMAL) POC URINALYSIS DIPSTICK AUTOMATED (01/05/2025 3:12 PM CDT) COLOR UA Doris(A) Pale to Dark Yellow 01/05/2025 3:12 PM CDT [facility] CLARITY UA Clear Clear 01/05/2025 3:12 PM CDT [facility] GLUCOSE UA Trace(A) Negative 01/05/2025 3:12 PM CDT [facility] BILIRUBIN UA 2+(A) Negative 01/05/2025 3:12 PM CDT [facility] KETONES UA 4+(A) Negative 01/05/2025 3:12 PM CDT [facility] BLOOD UA Negative Negative 01/05/2025 3:12 PM CDT [facility] PH UA 5.5 5.0 - 8.0 01/05/2025 3:12 PM CDT [facility] PROTEIN UA 2+(A) Negative 01/05/2025 3:12 PM CDT [facility] UROBILINOGEN UA 4.0(A) <2.0 mg/dL 3:12 PM CDT [facility] NITRITE UA Negative Negative 01/05/2025 3:12 PM CDT [facility] LEUKOCYTE ESTERASE UA Negative Negative 01/05/2025 3:12 PM CDT [facility] SPECIFIC GRAVITY UA POC >=1.030 1.000 - 1.030 01/05/2025 3:12 PM CDT [facility] Urine 01/05/2025 3:12 PM CDT 01/05/2025 3:14 PM CDT [facility] - 01/05/2025 3:12 PM CDT Recommend Urine Microcopic ([id number])and Urine Culture ([id number]) if indicated. us Interface Provider Poct POINT OF CARE TESTING Fi nal Result [facility]# [id number] [address] [place] [address] * (ABNORMAL) CBC WITH DIFFERENTIAL (01/05/2025 3:00 PM CDT) WBC 14.5(H) 4.0 - 9.8 K/uL 01/05/2025 3:26 PM CDT [facility] RBC 4.97(H) 3.90 - 4.90 M/uL 01/05/2025 3:26 PM CDT [facility] HEMOGLOBIN 14.8 11.8 - 14.8 g/dL 01/05/2025 3:26 PM CDT [facility] HEMATOCRIT 43.5 35.5 - 44.0 % 01/05/2025 3:26 PM CDT [facility] MCV 87.5 82.0 - 99.0 fL 01/05/2025 3:26 PM CDT [facility] MCH 29.8 27.2 - 32.6 pg 01/05/2025 3:26 PM CDT [facility] MCHC 34.0 31.5 - 35.5 g/dL 01/05/2025 3:26 PM CDT [facility] RDW 12.8 11.5 - 14.5 % 01/05/2025 3:26 PM CDT [facility] RDW-STDEV 40.5 37.1 - 48.7 fL 01/05/2025 3:26 PM CDT [facility] PLATELETS 402(H) 140 - 350 K/uL 01/05/2025 3:26 PM CDT [facility] MPV 11.2 9.3 - 12.4 fL 01/05/2025 3:26 PM CDT [facility] NEUTROPHILS 82 % 01/05/2025 3:26 PM CDT [facility] LYMPHOCYTES 11 % 01/05/2025 3:26 PM CDT [facility] MONOCYTES 6 % 01/05/2025 3:26 PM CDT [facility] EOSINOPHILS 0 % 01/05/2025 3:26 PM CDT [facility] BASOPHILS 0 % 01/05/2025 3:26 PM CDT [facility] IMMATURE GRANULOCYTES 0 % 01/05/2025 3:26 PM CDT [facility] NEUTROPHIL ABSOLUTE 11.92(H) 1.90 - 7.00 K/uL 01/05/2025 3:26 PM CDT [facility] LYMPHOCYTE ABSOLUTE 1.60 0.70 - 4.50 K/uL 01/05/2025 3:26 PM CDT [facility] MONOCYTE ABSOLUTE 0.79 0.10 - 1.30 K/uL 01/05/2025 3:26 PM CDT [facility] EOSINOPHIL ABSOLUTE 0.06 0.00 - 0.70 K/uL 01/05/2025 3:26 PM CDT [facility] BASOPHILS ABSOLUTE 0.05 0.00 - 0.20 K/uL 01/05/2025 3:26 PM CDT [facility] . [facility] IMMATURE GRANULOCYTES ABSOLUTE 0.06(H) 0.00 - 0.03 K/uL 01/05/2025 3:26 PM CDT [facility] Blood Venipuncture / Unknown 01/05/2025 3:00 PM CDT 01/05/2025 3:07 PM CDT us Randy Stockton RICE DRIER HEMATOLOGY ORDERABLES Fin al Result [facility] CLIA# [id number] [address] [address] [address] [place], [place] [address] * (ABNORMAL) COMPREHENSIVE METABOLIC PANEL (01/05/2025 3:00 PM CDT) SODIUM 138 136 - 145 mmol/L 01/05/2025 3:54 PM CDT [facility] POTASSIUM 4.2 3.5 - 5.0 mmol/L 01/05/2025 3:54 PM CDT [facility] CHLORIDE 99 98 - 107 mmol/L 01/05/2025 3:54 PM CDT [facility] CO2 22 22 - 29 mmol/L 01/05/2025 3:54 PM CDT [facility] CALCIUM 10.3(H) 8.6 - 10.2 mg/dL 01/05/2025 3:54 PM CDT [facility] BUN 9 6 - 20 mg/dL 01/05/2025 3:54 PM CDT [facility] CREATININE 0.67 0.51 - 0.95 mg/dL 01/05/2025 3:54 PM CDT [facility] GLUCOSE 80 74 - 99 mg/dL 01/05/2025 3:54 PM CDT [facility] TOTAL PROTEIN 7.9 6.7 - 8.6 g/dL 01/05/2025 3:54 PM CDT [facility] ALBUMIN 4.6 3.5 - 5.2 g/dL 01/05/2025 3:54 PM CDT [facility] BILIRUBIN TOTAL 1.3(H) 0.3 - 1.2 mg/dL 01/05/2025 3:54 PM T [facility] ALKALINE PHOSPHATASE 123(H) 35 - 104 U/L 01/05/2025 3:54 PM [facility] AST 24 <33 U/L 01/05/2025 3:54 PM [facility] ALT 17 <34 U/L 01/05/2025 3:54 PM [facility] GFR >60 >=60 mL/min/1.7 3 sq meter 01/05/2025 3:54 PM [facility] Comment:eGFR calculated with 2020 CKD-EPI equation. Vegetarian diet, extremely high or low muscle mass, and may affect results. Cystatin C with Glomerular Filtration Rate is a suitable alternative for these patients. ANION GAP 17(H) 8 - 16 mmol/L 01/05/2025 3:54 PM [facility] Blood Venipuncture / Unknown 01/05/2025 3:00 PM CDT 01/05/2025 3:07 PM CDT Narrative [facility] - 01/05/2025 3:54 PM CDT Samples containing indocyanine green cause interferences on Total and/or Direct Bilirubin and must not be measured. us Randy Stockton NP CHEMISTRY ORDERABLES Manjula l Result [facility] CLIA# [id number] [address] [place] [address] from Last 3 Months
--- OUTSIDE RECORDS SUMMARY | 2025-02-17 10:26 | XMS_ITS | Referral Summary ---
Author Organization [facility] Address [address] [place] [address] Care Team Providers Care Oim Consultant Name Role Phone No, Physician Primary Care Provider [phone] Encounters Date Type Department Care Team Description 12/04/2024 3:44 PM LEAD SECURITY OFFICER - 12/04/2024 6:44 PM [facility] Emergency Department [address] [place] [id number] Renny Tejeda MD Hyperemesis gravidarum (Primary Dx); Hypokalemia Discharge Disposition: Discharge to home or self care 11/27/2024 1:44 AM LEAD SECURITY OFFICER - 11/27/2024 6:35 AM [facility] Emergency Department [address] [place] [id number] Bahman Kimbrough MD Nausea and vomiting, unspecified vomiting type (Primary Dx); UTI (urinary tract infection), bacterial Discharge Disposition: Discharge to home or self care 11/25/2024 10:57 PM LEAD SECURITY OFFICER - 11/26/2024 1:34 AM [facility] Emergency Department [address] [place] [id number] Bahman Kimbrough MD UTI (urinary tract infection), bacterial (Primary Dx); Less than 8 weeks gestation of ; Asymptomatic bacteriuria during Discharge Disposition: Discharge to home or self care from Last 3 Months Allergies No known active allergies Medications ondansetron [...] Diagnosed Date Strep pharyngitis 11/30/2022 Comments Yes Social History Tobacco Use Types Packs/Day Years [...] on file Legal Sex Female 1:03 PM LEAD SECURITY OFFICER Gender Identity Not on file Sexual Orientation Not on file Last Filed Vital Signs Vital Sign Reading Time Taken Comments Blood Pressure 114/65 12/04/2024 6:44 PM LEAD SECURITY OFFICER Pulse 70 12/04/2024 6:44 PM LEAD SECURITY OFFICER Temperature 36.8 C (98.3 F) 12/04/2024 12:16 PM LEAD SECURITY OFFICER Respiratory Rate 17 12/04/2024 6:44 PM LEAD SECURITY OFFICER Oxygen Saturation 98% 12/04/2024 6:44 PM LEAD SECURITY OFFICER Inhaled Oxygen Concentration - - Weight 86.2 kg (190 lb) 12/04/2024 12:16 PM LEAD SECURITY OFFICER Height 157.5 cm (5' 2 ) 12/04/2024 12:16 PM LEAD SECURITY OFFICER Body Mass Index 34.75 12/04/2024 12:16 PM LEAD SECURITY OFFICER Plan of Treatment Not on file Procedures Procedure Name Priority Date/Time Associated Diagnosis Comments EGFR STAT 12/04/2024 4:41 PM LEAD SECURITY OFFICER DIFFERENTIAL AUTO STAT 12/04/2024 4:4 1 PM LEAD SECURITY OFFICER CBC WITH AUTO DIFFERENTIAL STAT 12/04/2024 4:41 PM LEAD SECURITY OFFICER COMPREHENSIVE METABOLIC PANEL STAT 12/04/2024 4:41 PM LEAD SECURITY OFFICER URINE CULTURE STAT 12/04/2024 4:41 PM LEAD SECURITY OFFICER URINALYSIS, MICROSCOPIC ONLY STAT 12/04/2024 12:16 PM LEAD SECURITY OFFICER URINALYSIS AND REFLEX TO MICROSCOPIC AND CULTURE STAT 12/04/2024 12:16 PM LEAD SECURITY OFFICER POCT HCG, URINE Routine 12/04/2024 12:15 PM LEAD SECURITY OFFICER XR CHEST 1 VIEW ED 11/27/2024 5:29 AM LEAD SECURITY OFFICER HCG, BLOOD, QUANTITATIVE STAT 11/26/2024 11:29 PM LEAD SECURITY OFFICER EGFR STAT 11/26/2024 11:29 PM LEAD SECURITY OFFICER DIFFERENTIAL AUTO STAT 11/26/2024 11: 29 PM LEAD SECURITY OFFICER COMPREHENSIVE METABOLIC PANEL STAT 11/26/2024 11:29 PM LEAD SECURITY OFFICER CBC WITH AUTO DIFFERENTIAL STAT 11/26/2024 11:29 PM LEAD SECURITY OFFICER URINALYSIS, MICROSCOPIC ONLY STAT 11/26/2024 12:27 AM LEAD SECURITY OFFICER URINALYSIS AND REFLEX TO MICROSCOPIC AND CULTURE STAT 11/26/2024 12:27 AM LEAD SECURITY OFFICER EGFR STAT 11/25/2024 9:31 PM LEAD SECURITY OFFICER DIFFERENTIAL AUTO STAT 11/25/2024 9:3 1 PM LEAD SECURITY OFFICER HCG, BLOOD, QUANTITATIVE STAT 11/25/2024 9:31 PM LEAD SECURITY OFFICER COMPREHENSIVE METABOLIC PANEL STAT 11/25/2024 9:31 PM LEAD SECURITY OFFICER CBC WITH AUTO DIFFERENTIAL STAT 11/25/2024 9:31 PM LEAD SECURITY OFFICER INFLUENZA A/B, RSV, AND COVID-19 PCR Routine 11/25/2024 9:31 PM LEAD SECURITY OFFICER from Last 3 Months Results * eGFR (12/04/2024 4:41 PM LEAD SECURITY OFFICER) eGFR >90 >=60 mL/min/1. 73 m2 Comment: [...] last reviewed 2021. Blood 12/04/2024 4:41 PM LEAD SECURITY OFFICER 12/04/2024 4:49 PM LEAD SECURITY OFFICER Melquiades Coffey MD LAB BLOOD ORDERABLES Final Result [address] [place] [address] * Differential, auto (12/04/2024 4:41 PM LEAD SECURITY OFFICER) Neutrophil abs 6.5 1.5 - 6.5 K/cumm Imm gran abs 0.0 0.0 - 0.1 K/cumm [facility] Lymphocyte abs 1.3 0.8 - 3.3 K/cumm [facility] Monocyte abs 0.7 0.2 - 0.8 K/cumm [facility] Eosinophil abs 0.0 0.0 - 0.5 K/cumm [facility] Basophil abs 0.0 0.0 - 0.1 K/cumm [facility] Neutrophil pct 76.0 % [facility] Comment: Interpretive Data Percent cell count reference ranges are not reported, since discordance with absolute values may lead to misinterpretation of CBC data. Current Interpretive Data was last revised on 2018. Imm gran pct 0.4 % [facility] Comment: Interpretive Data Percent cell count reference ranges are not reported, since discordance with absolute values may lead to misinterpretation of CBC data. Current Interpretive Data was last revised on 2018. Lymphocyte pct 14.7 % [facility] Comment: Interpretive Data Percent cell count reference ranges are not reported, since discordance with absolute values may lead to misinterpretation of CBC data. Current Interpretive Data was last revised on 2018. Monocyte pct 8.6 % [facility] Comment: Interpretive Data Percent cell count reference ranges are not reported, since discordance with absolute values may lead to misinterpretation of CBC data. Current Interpretive Data was last revised on 2018. Eosinophil pct 0.1 % [facility] Comment: Interpretive Data Percent cell count reference ranges are not reported, since discordance with absolute values may lead to misinterpretation of CBC data. Current Interpretive Data was last revised on 2018. Basophil pct 0.2 % [facility] Comment: Interpretive Data Percent cell count reference ranges are not reported, since discordance with absolute values may lead to misinterpretation of CBC data. Current Interpretive Data was last revised on 2018. Blood 12/04/2024 4:41 PM LEAD SECURITY OFFICER 12/04/2024 4:49 PM LEAD SECURITY OFFICER us Buffy BURKETT LAB BLOOD ORDERABLES Manjula henson Result [facility] [address] [facility] Department [place] [address] * CBC with auto differential (12/04/2024 4:41 PM LEAD SECURITY OFFICER) [facility] WBC 8.5 3.8 - 9.9 K/cumm Hgb 12.5 11.9 - 15.5 g/dL [facility] Hct 36.3 35.6 - 45.5 % [facility] Plt 286 150 - 400 K/cumm [facility] MPV 10.5 9.1 - 12.3 fL [facility] RBC 4.23 3.90 - 5.20 M/cumm [facility] MCV 85.8 81.3 - 96.4 fL [facility] MCH 29.6 27.1 - 33.3 pg [facility] MCHC 34.4 32.3 - 35.7 g/dL [facility] RDW CV 12.2 11.1 - 14.9 % [facility] RDW SD 38.4 35.7 - 48.1 fL [facility] NRBC abs 0.00 0.00 - 0.01 K/cumm [facility] Blood 12/04/2024 4:41 PM LEAD SECURITY OFFICER 12/04/2024 4:49 PM LEAD SECURITY OFFICER uBffy BURKETT LAB BLOOD ORDERABLES Manjula l Result [facility] [address] [facility] Department [place] [address] * (ABNORMAL) Urine culture Urine, bladder (12/04/2024 4:41 PM LEAD SECURITY OFFICER) [facility] Report Final Report: Growth indicates contamination with gram-positive mendez. (.) Comment:Testing performed by : [facility], [facility] [facility], [place]., [address] Organism GROWTH INDICATES CONTAMINATION WITH GRAM-POS MENDEZ [facility] Urine, bladder 12/04/2024 4: 41 PM LEAD SECURITY OFFICER 12/04/2024 6:00 PM LEAD SECURITY OFFICER Narrative [facility] - 12/05/2024 12:13 PM LEAD SECURITY OFFICER Indications for Culture:-> patient us Buffy BUREKTT LAB MICROBIOLOGY - GENERA L ORDERABLES Final Result [facility] [address] [facility] Department [place] [address] * (ABNORMAL) Comprehensive metabolic panel (12/04/2024 4:41 PM LEAD SECURITY OFFICER) Sodium 134(L) 135 - 145 mmol/L Potassium, pl 3.2(L) 3.3 - 4.9 mmol/L [facility] Chloride 100 97 - 110 mmol/L [facility] CO2 22 22 - 32 mmol/L [facility] Anion gap 12 2 - 15 mmol/L [facility] BUN 8 6 - 25 mg/dL [facility] Creatinine 0.57(L) 0.60 - 1.10 mg/dL [facility] Glucose 95 70 - 199 mg/dL [facility] Comment: Interpretive Data Fasting glucose >/= 126 [...] 2022. Calcium 9.2 8.5 - 10.3 mg/dL [facility] Bilirubin, total 0.4 0.1 - 1.2 mg/dL [facility] Protein, pl 6.6 6.5 - 8.5 g/dL [facility] Albumin 3.9 3.5 - 5.0 g/dL [facility] Alk phos 71 40 - 130 Units/L [facility] ALT 46(H) 7 - 45 Units/L [facility] AST 30 10 - 45 Units/L [facility] Blood 12/04/2024 4:41 PM LEAD SECURITY OFFICER 12/04/2024 4:49 PM LEAD SECURITY OFFICER Melquiades Coffey MD LAB BLOOD ORDERABLES Final Result [facility] [address] [place] [address] * (ABNORMAL) Urinalysis reflex to microscopic and culture Urine (12/04/2024 12:16 PM LEAD SECURITY OFFICER) Color, ur Yellow Yellow Clarity, ur Turbid(A) Clear [facility] Specific gravity, ur >1.030(H) 1.003 - 1.030 [facility] pH, urine 6.0 [facility] Comment: Interpretive Data U rine pH is affected by diet, medications, systemic acid-base disturbances, and renal tubular function. pH may affect urinary stone formation. For example, urine pH below 6.0 may help reduce the tendency for calcium phosphate stones and pH greater than 6.0 may reduce the tendency for uric acid stone formation. Source: [facility] Current Interpretive Data was last revised on 2017 Protein, ur ql 1+(A) Negative [facility] Glucose, ur ql Negative Negative [facility] Ketones, ur 4+(A) Negative [facility] Bilirubin, ur Negative Negative [facility] Blood, ur Negative Negative [facility] Urobilinogen, ur 4.0(A) <2.0 mg/dL [facility] Nitrite, ur Negative Negative [facility] Leukocyte esterase, ur Negative Negative [facility] UA reflex comment Reflex to microscopic UA will be performed. [facility] Urine 12/04/2024 12:1 6 PM LEAD SECURITY OFFICER 12/04/2024 12:19 PM LEAD SECURITY OFFICER us Renny Tejeda MD LAB MICROBIOLOGY - GE NERAL ORDERABLES Final Result [facility] [address] Department [place] [address] * (ABNORMAL) Urinalysis, microscopic only (12/04/2024 12:16 PM LEAD SECURITY OFFICER) WBC, ur 6-10(A) 0 - 5 /HPF RBC, ur 3-5(A) 0 - 2 /HPF [facility] Epithelial cells, squamous, ur 1-5 0 - 5 /HPF [facility] Bacteria, ur Trace(A) [facility] Mucous, ur Present(A) [facility] Culture Reflex Comment Reflex conditions for urine culture (WBC >10) not met. [facility] Urine 12/04/2024 12:1 6 PM LEAD SECURITY OFFICER 12/04/2024 12:19 PM LEAD SECURITY OFFICER Renny Tejeda MD LAB URINE ORDERABLES Final Result [facility] [address] [facility] Department [place] [address] * (ABNORMAL) POCT hCG, urine (12/04/2024 12:15 PM LEAD SECURITY OFFICER) HCG, ur, POC Positive(A) Negative Lot Number [id number] QC Backgroud Clear Acceptable QC Control Line Acceptable Urine 12/04/2024 12:1 5 PM LEAD SECURITY OFFICER Renny Tejeda MD POINT OF CARE TEST OR DERABLES Final Result * XR Chest 1 Vw Portable (11/27/2024 5:29 AM LEAD SECURITY OFFICER) Anatomical Region Laterality Modality Body, Chest N/A Computed Radiogr aphy 11/27/2024 6:16 AM LEAD SECURITY OFFICER Narrative 11/27/2024 6:18 AM LEAD SECURITY OFFICER EXAM DESCRIPTION: XR CHEST 1 VIEW REASON [...] Kraig Marinelli M.D. NS: NS Report ID: [id number] Reading Location: [id number] Procedure Note Kraig Marinelli MD - 11/27/2024 [...] Kraig Marinelli M.D. NS: NS Report ID: [id number] Reading Location: [place] [address] us Bahman Kimbrough MD IMG XR PROCEDURES Final Resul t * eGFR (11/26/2024 11:29 PM LEAD SECURITY OFFICER) eGFR >90 >=60 mL/min/1. 73 m2 Comment: [...] reviewed 2021. Blood 11/26/2024 11:2 9 PM LEAD SECURITY OFFICER 11/26/2024 11:36 PM LEAD SECURITY OFFICER us Bahman Kimbrough MD LAB BLOOD ORDERABLES Final Re sult [facility] ([place]) [address] [facility] Department [place] [address] * (ABNORMAL) Differential, auto (11/26/2024 11:29 PM LEAD SECURITY OFFICER) Neutrophil abs 18.0(H) 1.5 - 6.5 K/cumm [...] on 2018. Blood 11/26/2024 11:2 9 PM LEAD SECURITY OFFICER 11/26/2024 11:36 PM LEAD SECURITY OFFICER us Bahman Kimbrough MD LAB BLOOD ORDERABLES Final Re sult [facility] ([place]) [address] [facility] Department [place] [address] * (ABNORMAL) CBC with auto differential (11/26/2024 11:29 PM LEAD SECURITY OFFICER) WBC 20.3(H) 3.8 - 9.9 K/cumm Hgb 14.4 11.9 - 15.5 g/dL [facility] ([place]) Hct 41.8 35.6 - 45.5 % [facility] ([place]) Plt 419(H) 150 - 400 K/cumm [facility] ([place]) MPV 10.5 9.1 - 12.3 fL [...] blood specimen / Unknown 11/26/2024 11:29 PM LEAD SECURITY OFFICER 11/26/2024 11:36 PM LEAD SECURITY OFFICER us Bahman Kimbrough MD LAB BLOOD ORDERABLES Final Re sult Performing Organization Address City/[facility]/ZIP Co de Phone Number [facility] ([place]) [address] [facility] [place] [place] [address] * (ABNORMAL) hCG, blood, quantitative (11/26/2024 11:29 PM LEAD SECURITY OFFICER) [facility] hCG, quant 25,805.0( H) 0.0 - 5.0 IUnits/L Comment: Interpretive Data Male: < 5 IU/L Non- premenopausal Female: <5 IU/L The [employer] hCG Beta Quant assay procedure was used. Results from different manufacturers or methods may not be comparable. Serial testing should be performed using the same method. Interpretive Data was last revised on 2023 Blood 11/26/2024 11:2 9 PM LEAD SECURITY OFFICER 11/27/2024 6:31 AM LEAD SECURITY OFFICER us Bahman Kimbrough MD LAB BLOOD ORDERABLES Final Re sult [facility] ([place]) [address] [facility] Department [place] [place] [address] * (ABNORMAL) Comprehensive metabolic panel (11/26/2024 11:29 PM LEAD SECURITY OFFICER) Sodium 138 135 - 145 mmol/L Potassium, pl 3.6 3.3 - 4.9 mmol/L [facility] ([place]) Chloride 104 97 - 110 mmol/L [facility] ([place]) CO2 19(L) 22 - 32 mmol/L [facility] ([place]) Anion gap 15 2 - 15 mmol/L [facility] ([place]) BUN 9 6 - 25 mg/dL [facility] ([place]) Creatinine 0.62 0.60 - 1.10 mg/dL [facility] ([place]) Glucose 129 70 - 199 mg/dL [facility] ([place]) [...] 68 40 - 130 Units/L [facility] ([place]) ALT 8 7 - 45 Units/L [facility] ([place]) AST 16 10 - 45 Units/L [facility] ([place]) Blood Venous blood specimen / Unknown 11/26/2024 11:29 PM LEAD SECURITY OFFICER 11/26/2024 11:36 PM LEAD SECURITY OFFICER us Bahman Kimbrough MD LAB BLOOD ORDERABLES Final Re sult [facility] ([place]) [address] [facility] Department [place] [address] * (ABNORMAL) Urinalysis reflex to microscopic and culture Urine, bladder (11/26/2024 12:27 AM LEAD SECURITY OFFICER) Color, ur Yellow Yellow Clarity, ur Clear [...] tendency for uric acid stone formation. Source: [facility] [employer] Current Interpretive Data was last revised on 2017 Protein, ur ql 1+(A) Negative [facility] ([place]) Glucose, ur ql Negative Negative [facility] ([place]) Ketones, ur 3+(A) Negative [facility] ([place]) Bilirubin, ur Negative Negative [facility] ([place]) Blood, ur Negative Negative [facility] ([place]) Urobilinogen, ur 2.0(A) <2.0 mg/dL [facility] ([place]) Nitrite, ur Negative Negative [facility] ([place]) Leukocyte esterase, ur 1+(A) Negative [facility] ([place]) UA reflex comment Reflex to microscopic UA will be performed. [facility] ([place]) Urine, bladder 11/26/2024 12 :27 AM LEAD SECURITY OFFICER 11/26/2024 12:29 AM LEAD SECURITY OFFICER us Bahman Kimbrough MD LAB MICROBIOLOGY - GENERAL OR DERABLES Final Result [facility] ([place]) [address] [facility] Department [place] [address] * (ABNORMAL) Urinalysis, microscopic only (11/26/2024 12:27 AM LEAD SECURITY OFFICER) WBC, ur 0-5 0 - 5 /HPF RBC, ur 0-2 0 - 2 /HPF [facility] ([place]) Epithelial cells, squamous, ur 6-10(A) 0 - 5 /HPF [facility] ([place]) Bacteria, ur Trace(A) [facility] ([place]) Mucous, ur Present(A) [facility] ([place]) Culture Reflex Comment Reflex conditions for urine culture (WBC >10) not met. [facility] ([place]) Urine, bladder 11/26/2024 12 :27 AM LEAD SECURITY OFFICER 11/26/2024 12:29 AM LEAD SECURITY OFFICER Bahman Kimbrough MD LAB URINE ORDERABLES Final Re sult [facility] ([place]) [address] [facility] Department [place] [address] * Influenza A/B, RSV, and COVID-19 PCR Nasopharyngeal (11/25/2024 9:31 PM LEAD SECURITY OFFICER) COVID-19 RNA Negative Negative Influenza A RNA Negative Negative [facility] ([place]) Influenza B RNA Negative Negative [facility] ([place]) RSV RNA Negative Negative [facility] ([place]) Comment: Interpretive data: Testing performed by [facility]. This test is performed using the [employer] Xpert Xpress CoV-2/Flu/RSV plus assay. This is a multiplex, real- time reverse transcriptase PCR assay intended for the qualitative detection of nucleic acid from SARS-CoV-2, influenza A, influenza B, and respiratory syncytial virus. This assay has been cleared by the [place] Food and Drug administration. The performance characteristics have been verified by the [facility]. Results must be considered in the clinical context, and a negative result does not rule out infection. Interpretive Data last revised 2023 Nasopharyngeal 11/25/2024 9: 31 PM LEAD SECURITY OFFICER 11/25/2024 10:46 PM LEAD SECURITY OFFICER Narrative [facility] ([place]) - 11/25/2024 11:30 PM LEAD SECURITY OFFICER Is the Patient experiencing symptoms consistent with COVID?->Yes us Bahman Kimbrough MD LAB MICROBIOLOGY - GENERAL OR DERABLES Final Result [facility] ([place]) [address] [facility] [place] [address] * eGFR (11/25/2024 9:31 PM LEAD SECURITY OFFICER) eGFR >90 >=60 mL/min/1. 73 m2 Comment: [...] last reviewed 2021. Blood 11/25/2024 9:31 PM LEAD SECURITY OFFICER 11/25/2024 10:45 PM LEAD SECURITY OFFICER Bahman Kimbrough MD LAB BLOOD ORDERABLES Final Re sult [facility] ([place]) [address] [facility] Department [place] [address] * (ABNORMAL) Differential, auto (11/25/2024 9:31 PM LEAD SECURITY OFFICER) Neutrophil abs 8.5(H) 1.5 - 6.5 K/cumm Imm gran abs 0.0 0.0 - 0.1 K/cumm [facility] ([facility]) Lymphocyte abs 2.0 0.8 - 3.3 K/cumm [facility] ([place]) Monocyte abs 0.5 0.2 - 0.8 K/cumm [...] Lymphocyte pct 18.1 % [facility] ([place]) Comment: Interpretive Data Percent cell count reference [...] 2018. Basophil pct 0.4 % [facility] ([place]) Comment: Interpretive Data Percent cell count reference ranges are not reported, since discordance with absolute values may lead to misinterpretation of CBC data. Current Interpretive Data was last revised on 2018. Blood 11/25/2024 9:31 PM LEAD SECURITY OFFICER 11/25/2024 10:45 PM LEAD SECURITY OFFICER us Bahman Kimbrough MD LAB BLOOD ORDERABLES Final Re sult [facility] ([place]) [address] [facility] Department [place] [address] * (ABNORMAL) CBC with auto differential (11/25/2024 9:31 PM LEAD SECURITY OFFICER) WBC 11.3(H) 3.8 - 9.9 K/cumm Hgb [...] ([place]) MCH 29.7 27.1 - 33.3 pg [facility] ([place]) MCHC 33.8 32.3 - 35.7 g/dL [facility] ([place]) RDW CV 12.3 11.1 - 14.9 % [facility] ([place]) RDW SD 39.8 35.7 - 48.1 fL [facility] ([place]) NRBC abs 0.00 0.00 - 0.01 K/cumm [facility] ([place]) Blood 11/25/2024 9:31 PM LEAD SECURITY OFFICER 11/25/2024 10:45 PM LEAD SECURITY OFFICER us Bahman Kimbrough MD LAB BLOOD ORDERABLES Final Re sult [facility] ([place]) [address] [facility] Department [place] [address] * (ABNORMAL) hCG, blood, quantitative (11/25/2024 9:31 PM LEAD SECURITY OFFICER) Pathologist [facility] hCG, quant 22,135.0( H) 0.0 - 5.0 IUnits/L Comment: Interpretive Data Male: < 5 IU/L Non- premenopausal Female: <5 IU/L The [employer] hCG Beta Quant assay procedure was used. Results from different manufacturers or methods may not be comparable. Serial testing should be performed using the same method. Interpretive Data was last revised on 2023 Blood 11/25/2024 9:31 PM LEAD SECURITY OFFICER 11/25/2024 10:45 PM LEAD SECURITY OFFICER us Bahman Kimbrough MD LAB BLOOD ORDERABLES Final Re sult [facility] ([place]) [address] [facility] Department [place] [address] * Comprehensive metabolic panel (11/25/2024 9:31 PM LEAD SECURITY OFFICER) Sodium 136 135 - 145 mmol/L Potassium, pl 3.6 3.3 - 4.9 mmol/L [facility] ([place]) Chloride 100 97 - 110 [...] [facility] ([place]) Blood 11/25/2024 9:31 PM LEAD SECURITY OFFICER 11/25/2024 10:45 PM LEAD SECURITY OFFICER Bahman Kimbrough MD LAB BLOOD ORDERABLES Final Re sult [facility] ([place]) [address] [facility] [place] [address] from Last 3 Months Insurance [facility] Care Teams Oim Consultant Relationship Specialty Start Date End Date No, Physician PCP - General 09/12/22
--- OUTSIDE RECORDS SUMMARY | 2025-02-17 10:26 | XMS_ITS | Patient Health Record ---
Author Organization [facility] Address [address] [place] [address] Support Name Relationship Address Phone Osman Mcmahon Guarantor Unknown Unavailabl e Reason For Referral No Information Plan Of Treatment No Information Insurance Providers Payer Name Payer Address Payer Phone Subscriber Number Group Number Insured Name Patient Relationship to Insured Coverage Start Date Coverage End Date R [facility] Choice Plus FFS [address] [address] [place] [address] [id number] Osman Mcmahon Self - patient is the insured
--- OUTSIDE RECORDS SUMMARY | 2025-02-17 10:26 | XMS_ITS ---
Author Organization [facility] Address [address] [place] [address] Care Team Providers Care Platform Power Technician Name Role Phone [facility] [phone] REASON FOR VISIT LS TO ASYN Doctor's Note Encounters Encounter Location Date Provider Diagnosis [facility] [address] [place] [address] 12/18/2023 [facility] Plan Of Treatment No Information Progress Notes * Yoli MCMAHONmorenaDOB: [birth year] (24 yo F)Acc No.[id number]:12/18/2023 Patient: Yu WOODS Provider: Juan DOUGLAS [facility] :2000 A ge:23 Y S ex:Female Date:12/18/2023 Phone: Address:[address] [place], [place] [address]christiano Hollingsworth [facility] Subjective: * Chief Complaints: * 1 . LS TO NS ASYNC Doctor's Note. * Medical History: Objective: * Vitals: Assessment: Plan: * Treatment: * Billing Information: * Visit Code: * Procedure Codes: * Electronic signature of [facility] on 02/17/2025 at 11:26 AM EDT Sign off status: Pending * Provider: Juan DOUGLAS [facility] Date: 12/18/2023 Generated for Carolyn lopez/Brice/Maria Antonia on: 02/17/2025 11:26 AM EDT
== END 2025-02-17 10:06 | disposition home or self-care (01) ==
PROVIDERS: PCP Obstetrics & Gynecology; Visit Provider Obstetrics & Gynecology
DX: Z34.92 Encounter for supervision of normal pregnancy, unspecified, second trimester (principal); Z3A.19 19 weeks gestation of pregnancy
CPT/HCPCS: 76805